=== PATIENT | female | born 1995 | race Caucasian/White ===

== ENCOUNTER → 2021-09-07 11:35 | Outpatient (CLI) | payer BC, SELFPAY ==
--- NOTE | ~2021-09-07 | CT_ITS ---
EXAMINATION:CT diagnostic chest w con DATE: 09/07/2021 12:20 INDICATION: Papillary thyroid carcinoma. TECHNIQUE: Computed tomography (CT) of the chest was performed with 75 mL Omnipaque 350 intravenous c ontrast. Automated exposure control and iterative reconstruction technique were employed. The dose-le ngth product (DLP) was 176.19 mGy-cm. COMPARISON: None. FINDINGS: Calcified left lung nodules and calcified left hilar lymph nodes are consistent with old gr anulomatous disease. No pleural effusion. The heart size is normal. No pericardial effusion. The bone s are unremarkable. IMPRESSION: 1. No evidence of metastatic disease. Reviewed, dictated and finalized at location A. EXPERT
== END ==
PROVIDERS: PCP Nurse Practitioner Family; Visit Provider Internal Medicine Hematology & Oncology
DX: C73 Malignant neoplasm of thyroid gland (principal)
CPT/HCPCS: 71260; Q9967

== ENCOUNTER 2021-12-29 09:15 | Outpatient (CLI) | payer BC, SELFPAY ==
--- NOTE | ~2021-12-29 | NM_ITS ---
EXAMINATION: NM hepatobiliary wo pharm DATE: 12/29/2021 13:03 INDICATION: Epigastric abdominal pain. Nausea and vomiting. COMPARISON: CT chest 09/07/2021 TECHNIQUE: 5.2 mCi Tc-99m mebrofenin (Choletec) was administered intravenously. Scintigraphic images of the abdomen were obtained for one hour. Then, the patient drank 8 oz Ensure, and imaging was cont inued for 60 minutes. FINDINGS: There is normal clearance of radiotracer from the blood pool. There is homogeneous tracer u ptake by the liver. Activity progresses to the bowel and gallbladder. Gallbladder ejection fraction (GBEF) was 70%. Note that with this technique, normal GBEF >= 33%. IMPRESSION: 1. Normal hepatobiliary scintigraphy. Reviewed, dictated and finalized at location A. L ARCHITECT SPECIALIST
== END 2021-12-29 09:16 | disposition home or self-care (01) ==
LOC: ANHIMG 09:19
PROVIDERS: PCP Nurse Practitioner Family; Visit Provider Nurse Practitioner Family
DX: R10.13 Epigastric pain (principal); R11.2 Nausea with vomiting, unspecified
CPT/HCPCS: 78226; A9537